=== PATIENT | male | born 1990 | race Caucasian/White ===

== ENCOUNTER 2019-08-11 05:35 | Emergency (ER) | payer BC, OTHER ==
[~2019-08-11] VITALS: Ht 172.2 cm; Wt 95.5 kg
[2019-08-11 05:58] LABS: BILIRUBIN,URINE NEGATIVE (NEGATIVE); CLARITY,URINE CLEAR; COLOR,URINE YELLOW; GLUCOSE, URINE (UA) NEGATIVE (NEGATIVE); KETONES,URINE NEGATIVE (NEGATIVE); LEUKOCYTE ESTERASE ,URINE NEGATIVE (NEGATIVE); NITRITE,URINE NEGATIVE (NEGATIVE); PROTEIN,URINE TRACE (NEGATIVE); RBC,URINE >100 /HPF; UROBILINOGEN,URINE 0.2 MG/DL (NORMAL); WBC,URINE RARE /HPF
[2019-08-11 06:12] LABS: HEMATOCRIT 44 % (40-54); HEMOGLOBIN 14.8 G/DL (13.3-17.7); MEAN CORPUSCULAR HEMOGLOBIN 30 PG (25-34); MEAN CORPUSCULAR HGB CONC 34 G/DL (32-36); MEAN CORPUSCULAR VOLUME 89 FL (80-99); MEAN PLATELET VOLUME 10.8 FL (7.4-10.4); NEUTROPHILS % (AUTO) 35 % (42-75); PLATELET COUNT 264 10^3/uL (130-400); RED CELL DISTRIBUTION WIDTH 12.5 % (10.0-14.5)
[2019-08-11 06:13] LABS: BASOPHILS # (AUTO) 0.1 10^3/uL (0.0-0.1); BASOPHILS % (AUTO) 1 % (0-10); EOSINOPHILS # (AUTO) 0.2 10^3/uL (0.0-0.3); EOSINOPHILS % (AUTO) 2 % (0-10); LYMPHOCYTES # (AUTO) 4.2 X 10^3 (1.0-4.0); LYMPHOCYTES % (AUTO) 52 % (12-44); MONOCYTES # (AUTO) 0.8 X 10^3 (0.0-1.0); MONOCYTES % (AUTO) 10 % (0-12); NEUTROPHILS # (AUTO) 2.8 X 10^3 (1.8-7.8)
--- NOTE | 2019-08-11 06:21 | ED GU-Female ---
General Chief Complaint: - Urinary Stated Complaint: PT NOT URINATING, RT SIDE ABD PAIN Nursing Triage Note: pt with hx of kidney stones started having pain last friday to right flank area with blood in urine and has been coming and going since. Nursing Sepsis Screen: No Definite Risk Source: patient History of Present Illness Date Seen by Provider: Aug 11, 2019 Time Seen by Provider: 05:55 Initial Comments Patient is a 29-year-old male with history of kidney stones who presents with intermittent right flank pain rating to right lower quadrant times one week. Patient reports increased urinary frequency. With hematuria this morning. Pain is rated moderate to severe is not improved or worsened with movement position change. No relief with [id number]-[id number] pain medications. No fevers chills, sweats. Denies vomiting. No diarrhea or constipation. No other acute symptoms or complaints. Patient is a somewhat medical evaluation for his current symptoms prior to today's ED visit. Timing/Duration: week Severity/Quality: severe, dull Location: right flank Radiation: RLQ Activities at Onset: none Prior Genitourinary Problems: similar symptoms Modifying Factors: Improves With Analgesics Associated Symptoms: nausea/vomiting Allergies and Home Medications Allergies Coded Allergies: No Known Drug Allergies (Unverified , 08/11/19) Patient Home Medication List Home Medication List Reviewed: Yes Review of Systems Review of Systems Constitutional: see HPI EENTM: see HPI Respiratory: see HPI Cardiovascular: see HPI Gastrointestinal: see HPI Genitourinary: see HPI Musculoskeletal: see HPI Skin: see HPI Psychiatric/Neurological: See HPI Endocrine: See HPI Past Aqqjxux-Raunjw-Zfvxad Hx Past Med/Social Hx: Reviewed Nursing Past Med/Soc Hx Patient Social History Alcohol Use: Denies Use Recreational Drug Use: No Smoking Status: Never a Smoker 2nd Hand Smoke Exposure: No Recent Foreign Travel: No Contact w/Someone Who Travel: No Recent Infectious Disease Expo: No Recent Hopitalizations: No Physical Abuse: No Sexual Abuse: No Mistreated: No Fear: No Seasonal Allergies Seasonal Allergies: Yes Past Medical History Surgeries: Yes Tonsillectomy Respiratory: No Cardiac: No Neurological: No Genitourinary: Yes Kidney Stones Gastrointestinal: No Musculoskeletal: No Endocrine: No HEENT: No Cancer: No Psychosocial: No Integumentary: No Blood Disorders: No Physical Exam Vital Signs Vital Signs - First Documented 08/11/19 05:44 Temp 35.5 Pulse 65 Resp 18 B/P (MAP) 137/92 (107) O2 Delivery Room Air Capillary Refill : Less Than 3 Seconds Height, Weight, BMI Height: '" Weight: lbs. oz. kg; 32.00 BMI Method: General Appearance: moderate distress HEENT: PERRL/EOMI, normal ENT inspection, pharynx normal Neck: full range of motion, supple Cardiovascular: normal peripheral pulses, regular rate, rhythm, no edema Respiratory: lungs clear, normal breath sounds Gastrointestinal: non tender, soft Back: normal inspection, no CVA tenderness Extremities: normal range of motion, non-tender Neurologic/Psychiatric: route relief driver II-XII nml as tested, no motor/sensory deficits, normal mood/affect, oriented x 3 Focused Exam Sepsis Stage: Ruled Out Progress/Results/Core Measures Suspected Sepsis Recent Fever Within 48 Hours: No Infection Criteria Present: None New/Unexplained Altered Menta: No Sepsis Screen: No Definite Risk SIRS Temperature: Pulse: 65 Respiratory Rate: 18 Laboratory Tests 08/11/19 06:00: White Blood Count 8.0 Blood Pressure 137 /92 Mean: 107 Laboratory Tests 08/11/19 06:00: Creatinine 1.08, Platelet Count 264 Results/Orders Lab Results Laboratory Tests Test 08/11/19 05:45 08/11/19 06:00 Range/Units Urine Color YELLOW Urine Clarity CLEAR Urine pH 6.0 5-9 Urine Specific [place] 1.025 H 1.016-1.022 Urine Protein TRACE NEGATIVE Urine Glucose (UA) NEGATIVE NEGATIVE Urine Ketones NEGATIVE NEGATIVE Urine Nitrite NEGATIVE NEGATIVE Urine Bilirubin NEGATIVE NEGATIVE Urine Urobilinogen 0.2 NORMAL MG/DL Urine Leukocyte Esterase NEGATIVE NEGATIVE Urine RBC (Auto) 3+ H NEGATIVE Urine RBC >100 H /HPF Urine WBC RARE /HPF Urine Crystals NONE /LPF Urine Bacteria NONE /HPF Urine Casts NONE /LPF Urine Mucus MODERATE H /LPF Urine Culture Indicated NO White Blood Count 8.0 4.3-11.0 10^3/uL Red Blood Count 4.99 4.35-5.85 10^6/uL Hemoglobin 14.8 13.3-17.7 G/DL Hematocrit 44 40-54 % Mean Corpuscular Volume 89 80-99 FL Mean Corpuscular Hemoglobin 30 25-34 PG Mean Corpuscular Hemoglobin Concent 34 32-36 G/DL Red Cell Distribution Width 12.5 10.0-14.5 % Platelet Count 264 130-400 10^3/uL Mean Platelet Volume 10.8 H 7.4-10.4 FL Neutrophils (%) (Auto) 35 L 42-75 % Lymphocytes (%) (Auto) 52 H 12-44 % Monocytes (%) (Auto) 10 0-12 % Eosinophils (%) (Auto) 2 0-10 % Basophils (%) (Auto) 1 0-10 % Neutrophils # (Auto) 2.8 1.8-7.8 X 10^3 Lymphocytes # (Auto) 4.2 H 1.0-4.0 X 10^3 Monocytes # (Auto) 0.8 0.0-1.0 X 10^3 Eosinophils # (Auto) 0.2 0.0-0.3 10^3/uL Basophils # (Auto) 0.1 0.0-0.1 10^3/uL Sodium Level 142 135-145 MMOL/L Potassium Level 3.7 3.6-5.0 MMOL/L Chloride Level 105 98-107 MMOL/L Carbon Dioxide Level 26 21-32 MMOL/L Anion Gap 11 5-14 MMOL/L Blood Urea Nitrogen 16 7-18 MG/DL Creatinine 1.08 0.60-1.30 MG/DL Estimat Glomerular Filtration Rate > 60 BUN/Creatinine Ratio 15 Glucose Level 112 H 70-105 MG/DL Calcium Level 9.2 8.5-10.1 MG/DL My Orders Orders - GUS VIZCARRA DO Ua Culture If Indicated (08/11/19 05:45) Ct Abdomen/Pelvis Wo (08/11/19 05:50) Cbc With Automated Diff (08/11/19 05:50) Basic Metabolic Panel (08/11/19 05:50) Fentanyl Injection (Sublimaze Injection (08/11/19 06:30) Ondansetron Injection (Zofran Injectio (08/11/19 06:30) Ketorolac Injection (Toradol Injection) (08/11/19 06:30) Medications Given in ED Current Medications Medications Dose Ordered Sig/Jaime Route Start Time Stop Time Status Last Admin Dose Admin Fentanyl Citrate 50 mcg ONCE ONCE IVP 08/11/19 06:30 08/11/19 06:32 DC 08/11/19 06:27 50 MCG Ketorolac Tromethamine 30 mg ONCE ONCE IVP 08/11/19 06:30 08/11/19 06:32 DC 08/11/19 06:27 30 MG Ondansetron HCl 4 mg ONCE ONCE IVP 08/11/19 06:30 08/11/19 06:32 DC 08/11/19 06:26 4 MG Vital Signs/I&O 08/11/19 05:44 Temp 35.5 Pulse 65 Resp 18 B/P (MAP) 137/92 (107) O2 Delivery Room Air Capillary Refill : Less Than 3 Seconds Blood Pressure Mean: 107 Departure Communication (Admissions) Pain and nausea medication given. Symptoms improved. Following imaging studies reviewed. Will continue supportive care at how follow up with PCP/Urology. Impression Primary Impression: Acute right flank pain Additional Impression: Ureter colic Disposition: HOME, SELF-CARE Condition: Improved Departure-Patient Inst. Referrals: RAYRAY TROY MD (PCP) Primary Care Physician MADI SHETTY MD Patient Instructions: How to Strain Your Urine Add. Discharge Instructions: Please increase fluids and strain urine for kidney stone. Take ibuprofen for pain and only prescribed medications as directed. Contact Dr. Acuña for urology and schedule a follow-up appointment in 2-3 days if symptoms persist. Return to ED if new or worsening symptoms. All discharge instructions reviewed with patient and/or family. Voiced understanding. Scripts Tamsulosin HCl (Flomax) 0.4 Mg Cap 0.4 MG PO DAILY, #10 CAP Prov: GUS VIZCARRA DO 08/11/19 Ondansetron (Ondansetron Odt) 4 Mg Tab.rapdis 4 MG PO Q6H PRN for NAUSEA/VOMITING, #10 TAB Prov: GUS VIZCARRA DO 08/11/19 Hydrocodone Bit/Acetaminophen (Hydrocodone/Acetaminophen 5/325mg Tablet) 1 Tab Tab 1-2 EACH PO Q6H PRN for PAIN-MODERATE MDD 10 for 3 Days, #20 TAB 0 Refills Prov: GUS VIZCARRA DO 08/11/19 GUS VIZCARRA DO Aug 11, 2019 06:21
[2019-08-11 06:27] LABS: BUN/CREATININE RATIO 15; CARBON DIOXIDE 26 MMOL/L (21-32); CHLORIDE 105 MMOL/L (98-107); CREATININE SERUM 1.08 MG/DL (0.60-1.30); GFR ESTIMATED > 60; GLUCOSE 112 MG/DL (70-105); POTASSIUM 3.7 MMOL/L (3.6-5.0); SODIUM 142 MMOL/L (135-145)
[2019-08-11 06:28] LABS: CALCIUM 9.2 MG/DL (8.5-10.1)
[2019-08-11] MEDS ORDERED: KETOROLAC 30 MG/ML VIAL IVP ONE (06:30)
[2019-08-11] MEDS ORDERED: ONDANSETRON 4 MG/2 ML (SDV) Z0FRAN IVP ONE (06:30)
[2019-08-11] MEDS ORDERED: fentaNYL INJECTION 100 MCG/2 ML AMP IVP ONE (06:30)
[2019-08-11] MEDS ORDERED: ONDA4TAB11 PO (06:45)
[2019-08-11] MEDS ORDERED: ACHD5005 PO (06:45)
[2019-08-11] MEDS ORDERED: TAMS0.4C98 PO (06:45)
[2019-08-11 06:53] VITALS: BP 123/94
--- NOTE | 2019-08-11 08:06 | Diagnostic Imaging Report ---
PROCEDURE: CT abdomen and pelvis without contrast. TECHNIQUE: Multiple contiguous axial images were obtained through the abdomen and pelvis without the use of intravenous contrast. Auto Exposure Controls were utilized during the CT exam to meet ALARA standards for radiation dose reduction. INDICATION: Difficulty urinating. EXAMINATION: CT abdomen and pelvis without contrast from 08/11/2019. FINDINGS: The right kidney slightly prominent. There is a 5 mm stone in the proximal right ureter just distal to the renal pelvis. This causes mild right hydronephrosis. Other nonobstructive stones in the right kidney also seen. There are no ureteral stones on the left. No hydronephrosis. No stones in the left kidney. The remaining abdominal viscera limited by the lack of contrast but no acute abnormalities are seen. No free fluid or air seen in the abdomen nor pelvis. Diverticular disease is seen without evidence for diverticulitis. Appendix unremarkable. Osseous structures demonstrate small sclerotic area in the anterior border of the right ilium nonspecific. This could be followed to assure stability. Lung bases are unremarkable. IMPRESSION: 1. Stone in the proximal right ureter causing mild right hydronephrosis with nonobstructive stones in the right kidney. Other incidental findings as discussed above. Dictated by: Dictated on workstation # [id number]
== END 2019-08-11 06:53 | disposition home or self-care (01) ==
LOC: ER FS 05:37
DX: N23 Unspecified renal colic (principal); Z90.89 Acquired absence of other organs; Z87.442 Personal history of urinary calculi
CPT/HCPCS: 36415; 74176; 80048; 81000; 85025; 96374; 96375